=== PATIENT | male | born 1965 | race Caucasian/White ===

== ENCOUNTER 2018-07-01 14:41 | Emergency (ER) | payer OTHER ==
[~2018-07-01] VITALS: Ht 172.7 cm; Wt 85.3 kg
[2018-07-01] MEDS ORDERED: HYDROCHLOROTH12.5 M1 PO (14:54)
[2018-07-01] MEDS ORDERED: TELMISARTAN40 MG PO (14:54)
[2018-07-01 15:36] LABS: ABSOLUTE EOSINOPHILS 0.1 thou/uL (0.0-0.7); ABSOLUTE LYMPHOCYTES 1.8 thou/uL (0.8-5.3); ABSOLUTE MONOCYTES 0.5 thou/uL (0.0-1.2); BASOPHILS 0.7 %; EOSINOPHILS 1.8 %; HEMOGLOBIN 15.4 gm/dL (14.0-18.0); LYMPHOCYTES 28.2 %; MCH 31.8 pg (26.0-34.0); MCHC 35.1 g/dL (28.0-37.0); MCV 90.6 fL (80.0-100.0); MONOCYTES 7.9 %; MPV 9.6 fl. (7.2-11.1); NUCLEATED RBCS 0 /100WBC; PLATELET COUNT* 224 thou/uL (150-400); POLYS 61.4 %; RBC 4.86 mil/uL (4.50-6.00); RDW-CV 12.8 % (10.5-14.5); WBC 6.5 thou/uL (4.0-11.0)
[2018-07-01 15:45] LABS: ANION GAP 7 mmol/L (7-16); BUN 17 mg/dL (7-18); CALCIUM 8.7 mg/dL (8.5-10.1); CHLORIDE 101 mmol/L (98-107); CO2 32 mmol/L (21-32); CREATININE 1.1 mg/dL (0.6-1.3); GLUCOSE 83 mg/dL (70-99); POTASSIUM 3.3 mmol/L (3.5-5.1); SODIUM 140 mmol/L (136-145)
[2018-07-01 15:56] LABS: ALBUMIN 3.8 g/dL (3.4-5.0); ALKALINE PHOSPHATASE 74 U/L (46-116); NT-PRO BRAIN NAT PEPTIDE 21 pg/mL (<300); TOTAL BILIRUBIN 0.6 mg/dL (<0.1-1.0); TOTAL PROTEIN 7.2 g/dL (6.4-8.2); TROPONIN-I LEVEL <0.06 ng/mL (<0.06)
[2018-07-01 16:08] LABS: PROTIME 10.5 Seconds (9.20-11.50)
[2018-07-01 16:35] LABS: SGOT 20.4 U/L (15-37); SGPT 46.8 U/L (30-65)
[2018-07-01 18:40] VITALS: BP 139/94
--- NOTE | 2018-07-02 11:03 | EKG ---
[place] [address] ELECTROCARDIOGRAM REPORT Name: CLIFF BURNS Room: [facility]#: [id number] Admission: 07/01/18 Attend Phys: Discharge: 07/01/18 Date of : 67 Report #: [id number] THIS REPORT FOR: //name// [facility] ED Test Date: 2018-07-01 Test Time: 14:50:38 Pat Name: CLIFF BURNS Department: Room: Gender: M Yard Operator: OMID : 1965 Requested By: Ann Martínez Order Number: [id number] MD: Aakash Francis Measurements Intervals [place] Rate: 70 P: 54 [place]: 173 QRS: 41 QRSD: 99 T: 31 QT: 379 QTc: 409 Interpretive Statements Sinus rhythm Borderline T wave abnormalities No previous ECG available for comparison Electronically Signed On 07-02-2018 11:03:41 CARDIOVASCULAR SURGEON by Aakash Francis [email or web address] <ELECTRONICALLY SIGNED> By: Aakash Francis MD, [facility] 07/02/18 1103 1450 1450 Aakash Francis MD, FACC /EPI
== END 2018-07-01 18:40 | disposition home or self-care (01) ==
LOC: M.ERS 14:41
PROVIDERS: Nurse Practitioner Family
DX: R42 Dizziness and giddiness (principal); I10 Essential (primary) hypertension; Z85.840 Personal history of malignant neoplasm of eye